=== PATIENT | male | born 1980 | race Caucasian/White ===

== ENCOUNTER 2017-08-22 13:22 | Emergency (ER) | payer OTHER ==
[2017-08-22 13:32] VITALS: TEMP 36.6
[2017-08-22] MEDS ORDERED: LIDOCAINE 1% BUFFERED INJ 20 ML VIAL INFIL ONE (14:00)
[2017-08-22] MEDS ORDERED: NORCO 5/325MG HOME PACK PO ONE ×2 (14:45→15:30)
[2017-08-22] MEDS ORDERED: CEFTRIAXONE SOD 350MG/ML 1 GM VIAL IM ONE (14:45)
[2017-08-22] MEDS ORDERED: CLON1TAB10 PO (14:52)
--- NOTE | 2017-08-22 15:02 | DIAGNOSTIC IMAGING REPORT ---
R FINGER(S) MIN 2 VIEWS ROUTINE CLINICAL HISTORY: 36 years-old Male presenting with right thumb laceration on table saw. TECHNIQUE: Frontal, oblique, and lateral views of the right first finger were obtained. COMPARISON: None. FINDINGS: Soft tissue irregularity at the distal aspect of the right first finger. Multiple calcific fragments noted distal to the tuft of the distal phalanx, which may represent tiny fracture fragments. The tuft of the distal phalanx is slightly altered in morphology though no large osseous defect is apparent. The distal interphalangeal joint is preserved. No other fracture is evident. IMPRESSION: Soft tissue defect consistent with laceration with minimal subjacent osseous fragmentation of the tuft of the distal phalanx suspected. Electronically signed by: Leroy Phillips M.D. 08/22/2017 3:01 PM Dictated Date/Time: 08/22/2017 3:00 PM
[2017-08-22 15:30] VITALS: BP 124/76; PULSE 76; O2SAT 94
--- NOTE | 2017-08-22 15:32 | EMERGENCY ROOM VISIT NOTE ---
ED Visit Note First contact with patient: 13:41 CHIEF COMPLAINT: Right thumb laceration HISTORY OF PRESENT ILLNESS: This 36-year-old male patient cut the right thumb on with a circular saw prior to arrival.. The bleeding has stopped. Denies weakness or numbness of the finger. The patient is right-hand dominant. The patient's tetanus is up-to-date. REVIEW OF SYSTEMS: 6 system review was performed and was negative unless stated otherwise in history of present illness. PMH: The patient is healthy; there is no significant medical or surgical history. SOCIAL HISTORY: Patient lives with his mother. The patient admits to tobacco use but denies any alcohol use. PHYSICAL EXAM: Vital Signs: Reviewed Nurse's notes. GENERAL: 36-year-old white male appears in no acute distress. MENTAL Status: Alert and oriented 3. RIGHT : There is a 2.5 cm long laceration on the palmar aspect of the distal phalanx. The edges gape apart with traction. The wound is ragged and it appears dirty. No deep structures are visualized. Patient is able to bend and extend his right thumb. PROCEDURE: Wound Repair: Complexity: Complex Verbal consent was obtained after the risks and benefits were explained, including but not limited to bleeding, scarring, infection, pain, and bone/joint /nerve damage. The skin was prepped with betadine and a sterile field set. A digital block was performed using 8 mL of buffered 1% lidocaine. With direct pressure the bleeding subsided. Copious irrigation was performed using sterile saline. There was some debris noted which was removed with irrigation and forceps. I do not visualize any severed tendons or bony structures within the wound. Debridement was not performed. The macerated edges were trimmed with a scissors. The deep tissue was approximated with 2 interrupted 5-0 Vicryl sutures. The wound edges were approximated using 5-0 Ethilon with 6 simple interrupted sutures. Hemostasis and excellent approximation was achieved. Antibacterial ointment and a sterile dressing applied. Detailed wound care instructions and signs and symptoms of infection reviewed with the patient. No complications and the patient tolerated the procedure well. EMERGENCY DEPARTMENT COURSE: The patient was given Rocephin 1 g IM. X-ray of the right thumb was ordered interpreted by the radiologist and myself. DIAGNOSTICS:R FINGER(S) MIN 2 VIEWS ROUTINE CLINICAL HISTORY: 36 years-old Male presenting with right thumb laceration on table saw. TECHNIQUE: Frontal, oblique, and lateral views of the right first finger were obtained. COMPARISON: None. FINDINGS: Soft tissue irregularity at the distal aspect of the right first finger. Multiple calcific fragments noted distal to the tuft of the distal phalanx, which may represent tiny fracture fragments. The tuft of the distal phalanx is slightly altered in morphology though no large osseous defect is apparent. The distal interphalangeal joint is preserved. No other fracture is evident. IMPRESSION: Soft tissue defect consistent with laceration with minimal subjacent osseous fragmentation of the tuft of the distal phalanx suspected. Electronically signed by: Leroy Phillips M.D. 08/22/2017 3:01 PM The patient was informed of the findings. The patient was placed in a cage splint. The patient was given a [place] home pack to take this evening as needed for more severe pain. The patient was discharged home in stable condition. DIAGNOSIS: 2.5 cm right thumb laceration Fracture distal tuft of right thumb DISCHARGE INSTRUCTIONS & TREATMENT: Ibuprofen 600 mg every 6 hours with food for pain. Take [place] as needed for more severe pain. Do not drive while taking the [place]. Take Keflex as prescribed. Call Dr. Johnson tomorrow morning for follow-up appointment. Tomorrow or . Change bandage if it becomes soiled with blood. Suture removal as per Dr. johnson Current/Historical Medications Scheduled Clonazepam (Klonopin), 1 MG PO BID Allergies Coded Allergies: No Known Allergies (Unverified , 08/22/17) Vital Signs Date Time Temp Pulse Resp B/P (MAP) Pulse Ox O2 Delivery O2 Flow Rate FiO2 08/22/17 13:32 36.6 88 20 154/93 92 Room Air Medications Administered Medications (Trade) Dose Ordered Sig/Garo Route Start Time Stop Time Status Last Admin Dose Admin Ceftriaxone Sodium (Rocephin Im) 1,000 mg NOW ONCE IM 08/22/17 14:45 08/22/17 14:46 DC 08/22/17 14:45 1,000 MG Departure Information Referrals No Doctor, Assigned (PCP) Patient Instructions [facility]
[2017-08-22] MEDS ORDERED: CEPH500C2 PO (15:34)
== END 2017-08-22 15:46 | disposition home or self-care (01) ==
LOC: C.EDB 13:26 → C.EDD 15:46
DX: S61.011A Laceration without foreign body of right thumb without damage to nail, initial encounter (principal); S62.521A Displaced fracture of distal phalanx of right thumb, initial encounter for closed fracture; W31.2XXA Contact with powered woodworking and forming machines, initial encounter; Z72.0 Tobacco use; Z79.899 Other long term (current) drug therapy